=== PATIENT | female | born 1965 ===

== ENCOUNTER 2016-11-14 03:07 | Emergency (ER) | payer BC ==
[2016-11-14] MEDS ORDERED: ULTRAM PO ONE (07:40)
--- NOTE | 2016-11-14 07:56 | Emergency Department Report ---
HPI - General Chief Complaint: Extremity Problem,Nontraumatic Time Seen by Provider: 11/14/16 07:22 - HPI HPI: Patient is a 51-year-old female with past medical history of diabetes and elevated high blood pressure on medication resists the ED complaining of throbbing-type tightening type out of 10 in intensity pain from but to have right leg pain. Patient denies any injury or fall to the leg. Patient states pain started about 2 weeks ago. Patient states she saw her primary care physician on Friday and was given gabapentin twice a day. Patient states no relief with her parents and infected feels pain is worsening. Patient states pain is worsened with walking and movement. patient denies fevers/chills/nausea/ vomiting/abdominal pain/chest pain/burning physician/shortness of breath or difficulty walking or loss of sensation ED Past Medical Hx - Past Medical History Previous Medical History?: Yes Hx Hypertension: Yes Hx Diabetes: Yes - Surgical History Past Surgical History?: No - Social History Smoking Status: Never Smoker Substance Use Type: None - Medications Home Medications: Home Medications Medication Instructions Recorded Confirmed Last Taken Type Cyclobenzaprine [Flexeril] 10 mg PO QHS PRN #20 tablet 11/14/16 Unknown Rx Naproxen [Naprosyn] 500 mg PO BID #30 tablet 11/14/16 Unknown Rx ED Review of Systems ROS: Stated complaint: LEFT LEG PAIN Other details as noted in HPI Constitutional: denies: chills, fever Eyes: denies: eye pain, eye discharge, vision change ENT: denies: ear pain, throat pain, dental pain, hearing loss Respiratory: denies: cough, shortness of breath, wheezing Cardiovascular: denies: chest pain, palpitations Endocrine: no symptoms reported Gastrointestinal: denies: abdominal pain, nausea, vomiting, diarrhea Genitourinary: denies: urgency, dysuria, discharge Musculoskeletal: myalgia. denies: back pain, joint swelling, arthralgia Skin: denies: rash, lesions, pruritus Neurological: denies: headache, weakness, paresthesias Psychiatric: denies: anxiety, depression Hematological/Lymphatic: denies: easy bleeding, easy bruising Physical Exam - Physical Exam Vital Signs: Vital Signs 11/14/16 03:17 Temperature 98.7 F Pulse Rate 93 H Respiratory 20 Rate Blood Pressure 149/101 O2 Sat by Pulse 99 Oximetry Physical Exam: GENERAL: Alert and oriented x3, no apparent distress, Normal Gait, atraumatic. HEAD: Head is normocephalic and a-traumatic. EYES: Extra ocular muscles are intact. Pupils are equal, round, and reactive to light and accommodation. NECK: Supple. Non edematous, No carotid bruits. No lymphadenopathy or thyromegaly. No C-spine tenderness LUNGS: Symetrical with respiration, No wheezing, no rales or crackles, CTAB. HEART: S1, S2 present, regular rate and rhythm without murmur, no rubs, no gallops. ABDOMEN: No organomegaly was noted,Positive bowel sounds, soft, and non- distended. . Nontender to palpation on all Quadrants, NO CVA tenderness. EXTREMITIES/MUSCULOSKELETAL: No cyanosis, clubbing, rash, lesions or edema. Full ROM bilaterally of lower extremities. LE Pulses 2+ bilaterally. LE and UE 5+ strength bilaterally, pain to posterior knee with straight leg raise. Homans sign positive left. NEUROLOGIC: No focal Deficit, Cranial nerves II through XII are grossly intact. No loss of sensation, No facial droop, PSYCHIATRIC: Mood is congruent with affect, denies suicidal or homicidal ideations. SKIN: Warm and dry, No lesions, No ulceration or induration present. ED Course Vital Signs 11/14/16 03:17 Temperature 98.7 F Pulse Rate 93 H Respiratory 20 Rate Blood Pressure 149/101 O2 Sat by Pulse 99 Oximetry ED Medical Decision Making - Medical Decision Making 51-year-old female presents to ED with ED course: Patient received 2 mg tramadol. Left extremity Doppler studies done. Studies show Discussed the patient attempted blood pressure medications upon returning home. Vital signs are normal. A symptomatic elevated blood pressur due to no blood pressure medication dose Discussed the patient will make sure she follows up with her primary care physician with a new medication and the prescription she was given. Patient states she will follow-up with her primary care. Discussed with patient rest and heat application to leg 3 times a day. Critical care attestation.: If time is entered above; I have spent that time in minutes in the direct care of this critically ill patient, excluding procedure time. ED Disposition Clinical Impression: Myalgia, Lumbar radicular pain Disposition: DISCHARGED TO HOME OR SELFCARE Is pt being admited?: No Does the pt Need Aspirin: No Condition: Stable Instructions: Lumbar Radiculopathy (ED), Trigger Point Pain (ED), Musculoskeletal Pain (ED), Heat Pack Application (ED) Additional Instructions: Rest your leg Absent from strenuous activity for the next 2 days. Take medication as prescribed. Follow-up which her primary care physician Prescriptions: Cyclobenzaprine [Flexeril] 10 mg PO QHS PRN #20 tablet PRN Reason: Muscle Spasm Naproxen [Naprosyn] 500 mg PO BID #30 tablet Referrals: PRIMARY MD JOLENE [Primary Care Provider] - 3-5 Days CHON SMITH MD [Referring] - 3-5 Days [facility] [Outside] - 3-5 Days [facility] [Outside] - 3-5 Days Forms: Accompanied Note, Work/School Release Form(ED) Time of Disposition: 08:52
[2016-11-14 09:27] VITALS: BP 159/95
--- NOTE | 2016-11-15 07:50 | Vascular Lab Report ---
Left Lower Extremity Venous Duplex Study: Reason for Exam: Left leg pain. Comments on the Right: A limited duplex study was done of the proximal veins of the right lower extremity. All veins visualized are freely compressible without evidence of internal echogenicity. Flow is spontaneous and phasic throughout. No evidence of acute or chronic thrombus is seen in any of the vessels visualized. Comments on the Left: All veins visualized are freely compressible without evidence of internal echogenicity. Flow is spontaneous and phasic throughout. No evidence of acute or chronic thrombus is seen in any of the vessels visualized. Impression: No evidence of acute or chronic deep venous thrombosis in the left lower extremity.
== END 2016-11-14 09:25 | disposition home or self-care (01) ==
LOC: ED 03:07
DX: M54.16 Radiculopathy, lumbar region (principal); M79.1 Myalgia; I10 Essential (primary) hypertension; E11.9 Type 2 diabetes mellitus without complications
CPT/HCPCS: 99283